=== PATIENT | male | born 1975 | race Caucasian/White ===

== ENCOUNTER → 2018-05-19 | Day surgery (SDC) | payer BC ==
[~2018-05-19] MED LIST: FENTANYL CITRATE/PF 100MCG/2 ML INJ ONE; MIDAZOLAM HCL 2 MG/2 ML VIAL ONE; PANTOPRAZOLE 40 MG 10ML VIAL ONE; PANTOPRAZOLE SO40 MG PO; PROPOFOL IV EMULSION 10 MG/ML 50 ML VIAL ONE
[2018-05-19 16:00] VITALS: BP 128/76
--- NOTE | 2018-05-19 16:21 | Operative Report ---
DATE OF PROCEDURE: May 19, 2018 REFERRING PHYSICIAN: Dr. Duc Veronica PROCEDURE PERFORMED: Esophagogastroduodenoscopy with esophageal dilatation, brushings and biopsies. INDICATIONS FOR PROCEDURE: Dysphagia, odynophagia. MEDICATION: Patient was done under MAC. Please see anesthesiologist's note. PROCEDURE: With the patient in the left lateral decubitus position, the flexible fiberoptic Olympus gastroscope was introduced into the esophagus under direct visualization without any difficulty. There were some scattered whitish plaques, and those were brushed to rule out corrie. There was a mild stricture noted at the GE junction, and that was dilated to a size 52-Sloven[place] Curtis. Biopsies also were obtained from the esophagus to rule out eosinophilic esophagitis. The scope was then advanced with ease into the stomach, traversing a small sliding hiatal hernia. Mucosa overlying the antrum and the body revealed some diffuse intense erythema and moderate edema, and biopsies were obtained and sent to stain for H. pylori. Pylorus was slightly stenotic, but it opened up nicely with repetitive intubations with the scope, which was advanced to the 2nd portion of the duodenum. Biopsies were obtained from the proximal 2nd portion to rule out sprue. Mucosa overlying the duodenal bulb appeared to be within normal limits. The scope was then withdrawn back into the stomach and retroflexed. The mucosa overlying the fundus and the cardia appeared to be within normal limits. The scope was then straightened out. The stomach was decompressed. The scope was subsequently withdrawn. Patient tolerated the procedure well. IMPRESSION 1. Rule out corrie esophagitis. 2. Rule out eosinophilic esophagitis. 3. Mild stricture at gastroesophageal junction dilated to a size 52-Sloven[place] Curtis. 4. Small sliding hiatal hernia. 5. Gastritis, biopsied. Biopsies sent to stain for H. pylori. 6. Rule out sprue. PLAN: Follow up histology. Increase Protonix to 40 mg 1 p.o. a.c. b.i.d. Job#: [id number] cc:DUC VERONICA MD
--- OUTSIDE RECORDS SUMMARY | 2018-05-30 11:09 | XMS REPORT ---
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 Allergies, Adverse Reactions, Alerts This patient has no known allergies or adverse reactions. Medications This patient has no known medications. Results Test Description Test Time Test Comments Text Results Atomic Results Result Comments CHEST SINGLE (PORTABLE) [place] [address] Patient Name: TRAVIS AKBAR MR #: [id number] : 1975 Age/Sex: 41/M Req #: [id number] Adm Physician: Ordered by: JULIAN VERONICA MD Report #: [id number] Location: OR Room/Bed: Procedure: [id number] DX/CHEST SINGLE (PORTABLE) Exam Date: 05/09/17 Exam Time: 1846 REPORT STATUS: Signed PROCEDURE: A single AP view of the chest. COMPARISON: None. INDICATIONS: FOREIGN BODY FINDINGS: Lines/tubes: None. Lungs: The lungs are well inflated and clear. There is no evidence of pneumonia or pulmonary edema. 1.0 cm round opacity over the right lower lung is probably nipple shadow. Pleura: There is no pleural effusion or pneumothorax. Right apical opacity. Heart and mediastinum: Normal heart size. Known esophageal foreign body is not radiopaque. There is mild dilatation of the proximal esophagus. No pneumomediastinum. Bones: No acute bony abnormality. IMPRESSION: 1. The known esophageal foreign body is not radiopaque. There is mild dilatation of the proximal esophagus. No pneumomediastinum or pleural effusions. 2. Right apical opacity may represent scarring related to reported history of spontaneous pneumothorax. Recommend comparison with prior radiographs. If no prior radiographs are available, recommend further evaluation with CT of the chest. Dictated by: Jeffery Peck M.D. on 05/09/2017 at 19:07 Electronically approved by: Jeffery Peck M.D. on 05/09/2017 at 19:07 Dictated By: JEFFERY PECK MD 06 Transcribed By: CECIL on 05/09/171906 COPY TO: JULIAN VERONICA MD
--- OUTSIDE RECORDS SUMMARY | 2018-05-30 11:09 | XMS REPORT | Clinical Summary ---
Author Author [facility] Address Unknown Phone Unavailable Care Team Providers Care Stenographer Secretary Name Role Phone Mia Arango MD PCP Allergies Active Allergy Reactions Severity Noted Date Comments Ampicillin 06/23/2016 Penicillins 07/11/2017 As a child. Current Medications Prescription Sig. Disp. Refills Start End Date Status Date pantoprazole (PROTONIX) Take 1 tablet (40 mg 60 tablet 5 09/10/19 Active 40 MG EC total) by mouth 2 (two) 17 tabletIndications: times a day. Dysphagia, unspecified type hydrOXYzine (ATARAX) 50 TK 1 T PO BID PRN 0 04/19/20 Active MG tablet 17 loratadine (CLARITIN) 10 Take 10 mg by mouth Active mg tablet daily. cyclobenzaprine Take 10 mg by mouth 2 0 07/11/20 Active (FLEXERIL) 10 mg tablet (two) times a day. 17 acetaminophen-codeine TK 1 TO 2 TS PO Q 4 H PRN 1 04/25/20 07/12/20 Discontin (TYLENOL WITH CODEINE #3) P 17 17 ued 300-30 mg per tablet escitalopram (LEXAPRO) 20 TK 1 T PO QD 0 02/09/20 07/04/20 Discontin MG tablet 17 17 ued FLUoxetine (PROzac) 20 MG TK 1 C PO QD IN THE 0 03/04/20 07/04/20 Discontin capsule MORNING 17 17 ued carisoprodol (SOMA) 350 TK 1 T PO BID 0 05/03/20 07/12/20 Discontin MG tablet 17 17 ued dexamethasone (DECADRON) TK 1 T PO BID 0 05/03/20 07/12/20 Discontin 4 MG tablet 17 17 ued fluconazole (DIFLUCAN) TAKE 1 TABLET BY MOUTH 0 05/13/20 07/04/20 Discontin 200 MG tablet TWICE DAILY FOR 5 DAYS 17 17 ued THEN ONCE DAILY FOR 20 DAYS HYDROcodone-acetaminophen TK 1 T PO Q 4 TO 6 H PRN 0 05/03/20 07/12/20 Discontin (NORCO) 5-325 mg per P 17 17 ued tablet HYDROcodone-acetaminophen 1-2 tabs as needed for 0 07/12/20 08/11/20 (NORCO) 5-325 mg per pain every 4-6 hrs 17 17 tablet methocarbamol (ROBAXIN) Take 1 tablet (500 mg 07/12/20 08/11/20 500 MG tablet total) by mouth every 8 17 17 (eight) hours as needed for muscle spasms for up to 30 days. dexamethasone (DECADRON) Take 1 tablet (0.75 mg 7 tablet 0 07/12/20 07/19/20 0.75 MG tablet total) by mouth daily 17 17 with breakfast for 7 days. Active Problems Problem Noted Date Cervical radiculopathy 07/11/2017 Dysphagia 06/23/2016 Encounters Date Type Specialty Care Team Description 07/21/2017 Office Visit Neurosurgery Praneeth Cooper MD Cervical radiculopathy at C7 (Primary Dx) 07/11/2017 [facility] Neurosurgery Praneeth Cooper MD - Encounter 07/12/2017 07/11/2017 Procedure Pass Neurosurgery 07/11/2017 Procedure Pass General Surgery 07/11/2017 Surgery General Surgery Praneeth Cooper MD LEFT C6-7 LAMINECTOMY AND FORAMINOTOMY 07/05/2017 Anesthesia General Surgery Virgilio Singer, DIRECTOR OF MARKETING ANALYTICS Event 07/04/2017 Pre-Admit Pre-Admission Testing Praneeth Cooper MD Preop testing (Primary Testing Dx) Appointment 06/21/2017 Office Visit Neurosurgery Praneeth Cooper MD Cervical radiculopathy at C7 (Primary Dx) 06/03/2017 Hospital Radiology Praneeth Cooper MD Cervical spinal stenosis Encounter after 05/18/2017 Family History Medical History Relation Name Comments No Known Problems Father No Known Problems Mother Relation Name Status Comments Father Alive Mother Alive Social History Tobacco Use Types Packs/Day Years Used Date Never Smoker Smokeless Tobacco: Snuff Current User Alcohol Use Drinks/Week oz/Week Comments Yes occ Sex Assigned at Date Recorded Not on file Last Filed Vital Signs Vital Sign Reading Time Taken Blood Pressure 136/75 07/12/2017 8:32 AM [facility] Pulse 82 07/12/2017 8:32 AM [facility] Temperature 36.7 C (98 F) 07/12/2017 8:32 AM [facility] Respiratory Rate 16 07/12/2017 8:32 AM [facility] Oxygen Saturation 98% 07/12/2017 8:32 AM [facility] Inhaled Oxygen - - Concentration Weight - - Height 185.4 cm (6' 1") 07/11/2017 7:21 AM [facility] Body Mass Index - - Plan of Treatment Health Maintenance Due Date Last Done Comments INFLUENZA VACCINE 03/15/2018 Implants Implanted Type Area Heel Lining Paster Device Expiration Model / Identifier Date Serial / Lot Kit Hemostatic Matrix W/Thrombin Surgical N/A: N/A ETHICON US-EH 10/12/2018 2994 / 8ml Surgif[employer] - [id number] Implants; / Implanted: 07/11/2017 (Quantity not Expanders; [id number] on file) Extenders; Surgical Wires Procedures Procedure Name Priority Date/Time Associated Diagnosis Comments PARTIAL THROMBOPLASTIN Routine 07/12/2017 Results for this TIME (PTT) 4:10 AM [facility] procedure are in the results section. MRI LUMBAR SPINE WO Routine 07/11/2017 Results for this CONTRAST 9:37 PM [facility] procedure are in the results section. SURGICAL PATHOLOGY Routine 07/11/2017 Results for this REQUEST 11:27 AM [facility] procedure are in the results section. XR CERVICAL SPINE 1 VW Routine 07/11/2017 Results for this 9:58 AM [facility] procedure are in the results section. XR CERVICAL SPINE 1 VW Routine 07/11/2017 Results for this 9:25 AM [facility] procedure are in the results section. AL AN ELECTIVE Routine 07/11/2017 ENDOTRACHEAL AIRWAY 9:09 AM [facility] Procedure Note - Mia Griffin Jr., MD - 07/11/2017 8:56 AM [facility] Airway Date/Time: 07/11/2017 8:45 AM Performed by: MIA GRIFFIN JR Authorized by: MIA GRIFFIN JR Location: OR Urgency: Elective Anesthesio logist: MIA GRIFFIN JR Performed by: anesthesio logist Preoxygena bessy with 100% O2: Yes C-spine Precaution s Maintained Throughout : Yes Mask Ventilatio n: Easy mask Final Airway Type: Endotrache al airway (head prepositio elissa cinfortabl y before intubation ) Final Endotrache al Airway: ETT Cuffed: Yes Technique Used: Direct laryngosco py Devices/Me thods Used in Placement: Intubatin g stylet Insertion Site: Oral Blade Type: Calvert Laryngosco pe Blade/Vide olaryngosc ope Blade Size: 2 ETT Size (mm): 8.0 Cuff at minimum occlusion pressure: Yes Measured from: Teeth Placement Verified by: direct visualizat ion Laryngosco pic view: Grade IIb - view of arytenoids or posterior of glottis only Rapid Sequence Induction (RSI): No Modified RSI: No Number of Attempts at Approach: 1 TYPE AND SCREEN Routine 07/11/2017 Results for this 7:33 AM [facility] procedure are in the results section. LAMINECTOMY, CERVICAL, 07/11/2017 CERVICAL RADICULOPATHY POSTERIOR APPROACH 7:30 AM [facility] M54.12 Case Notes EST 2.5HRS, PRONE POSITION, COOL HEADREST Special Needs EST 2.5HRS, PRONE POSITION, MCINTOSH HEADREST ZZESTIMATED GFR Routine 07/04/2017 Results for this 2:22 PM [facility] procedure are in the results section. PARTIAL THROMBOPLASTIN Routine 07/04/2017 Preop testing Results for this TIME (PTT) 2:22 PM [facility] procedure are in the results section. PROTHROMBIN TIME WITH INR Routine 07/04/2017 Preop testing Results for this 2:22 PM [facility] procedure are in the results section. HC COMPLETE BLD COUNT Routine 07/04/2017 Preop testing Results for this W/AUTO DIFF 2:22 PM [facility] procedure are in the results section. HIV 1, 2 ANTIBODY Routine 07/04/2017 Preop testing Results for this 2:22 PM [facility] procedure are in the results section. HEPATITIS C ANTIBODY Routine 07/04/2017 Preop testing Results for this 2:22 PM [facility] procedure are in the results section. HEPATITIS B SURFACE Routine 07/04/2017 Preop testing Results for this ANTIGEN 2:22 PM [facility] procedure are in the results section. HEPATITIS A ANTIBODY IGM Routine 07/04/2017 Preop testing Results for this 2:22 PM [facility] procedure are in the results section. BASIC METABOLIC PANEL Routine 07/04/2017 Preop testing Results for this 2:22 PM [facility] procedure are in the results section. CT CERVICAL SPINE WO Routine 06/03/2017 Cervical spinal stenosis Results for this CONTRAST 11:58 AM CDT procedure are in the results section. after 05/18/2017 Results * Partial thromboplastin time, activated (07/12/2017 4:10 AM) Only the most recent of 2 results within the time period is included. PTT 27.1 23.0 - 36.0 sec [facility] DEPARTMENT OF Comment: PATHOLOGY AND PTT therapeutic range for GENOMIC MEDICINE unfractionated heparin is 61.0-112.0 seconds which corresponds to Anti-Xa 0.3-0.7 U/ml. Specimen Blood Performing Organization Address City/State/Zipcode Phone Number [facility] DEPARTMENT OF [address] [place] [address] PATHOLOGY AND GENOMIC MEDICINE * MRI Lumbar Spine Wo Contrast (07/11/2017 9:37 PM) Narrative Performed At [facility] EXAMINATION: MRI LUMBAR SPINE WO CONTRAST CLINICAL HISTORY: weakness COMPARISON:None TECHNIQUE: Multiplanar multisequence nonenhanced MRI examination was performed of the Lumbar spine. FINDINGS: For the purposes of this report, 5 lumbar type vertebral bodies are assumed and numbered according to the lumbosacral and vertebral morphology. Vertebral body heights are maintained without acute fracture.Lumbar spine alignment is grossly preserved with normal lordosis without significant subluxation. No suspicious osseous lesions. No degenerative marrow signal abnormality is present. Conus medullaris terminates at the inferior aspect of L1. Axial images through the disc spaces demonstrate the following: L1-L2: No significant posterior disc disease, spinal canal or neural foraminal stenosis. L2-L3: No significant posterior disc disease, spinal canal or neural foraminal stenosis. L3-L4: No significant posterior disc disease, spinal canal or neural foraminal stenosis. L4-L5: Diffuse disc bulge with superimposed small right foraminal disc protrusion tiny annular fissure contributing to mild right neural foraminal narrowing. Patent spinal canal. Mild bilateral facet hypertrophy. L5-S1: No significant posterior disc disease, spinal canal or neural foraminal stenosis. Mild bilateral facet hypertrophy. No significant posterior disc disease, spinal canal or neural foraminal stenosis at other visualized levels. IMPRESSION: Minimal degenerative changes of the lumbar spine without significant spinal canal or neural foraminal narrowing. Small right foraminal disc protrusion at L4-L5 results in mild right neural foraminal narrowing. [id number] Procedure Note Interface, Radiology Results Incoming - 07/12/2017 12:54 AM [facility] EXAMINATION: MRI LUMBAR SPINE WO CONTRAST CLINICAL HISTORY: weakness COMPARISON: None TECHNIQUE: Multiplanar multisequence nonenhanced MRI examination was performed of the Lumbar spine. FINDINGS: For the purposes of this report, 5 lumbar type vertebral bodies are assumed and numbered according to the lumbosacral and vertebral morphology. Vertebral body heights are maintained without acute fracture. Lumbar spine alignment is grossly preserved with normal lordosis without significant subluxation. No suspicious osseous lesions. No degenerative marrow signal abnormality is present. Conus medullaris terminates at the inferior aspect of L1. Axial images through the disc spaces demonstrate the following: L1-L2: No significant posterior disc disease, spinal canal or neural foraminal stenosis. L2-L3: No significant posterior disc disease, spinal canal or neural foraminal stenosis. L3-L4: No significant posterior disc disease, spinal canal or neural foraminal stenosis. L4-L5: Diffuse disc bulge with superimposed small right foraminal disc protrusion tiny annular fissure contributing to mild right neural foraminal narrowing. Patent spinal canal. Mild bilateral facet hypertrophy. L5-S1: No significant posterior disc disease, spinal canal or neural foraminal stenosis. Mild bilateral facet hypertrophy. No significant posterior disc disease, spinal canal or neural foraminal stenosis at other visualized levels. IMPRESSION: Minimal degenerative changes of the lumbar spine without significant spinal canal or neural foraminal narrowing. Small right foraminal disc protrusion at L4-L5 results in mild right neural foraminal narrowing. [id number] Performing Organization Address City/[facility]/Zipcode Phone Number [facility] [address] [place] [address] * Surgical pathology request (07/11/2017 11:27 AM) [facility] DEPARTMENT OF PATHOLOGY AND GENOMIC MEDICINE Surgical pathology report See link below for PDF Lab [facility] DEPARTMENT OF Report PATHOLOGY AND GENOMIC MEDICINE Result status This is Final Report to [facility] DEPARTMENT OF [id number] PATHOLOGY AND GENOMIC MEDICINE Performing Organization Address City/[facility]/Zipcode Phone Number [facility] DEPARTMENT OF [address] [place] [id number] PATHOLOGY AND GENOMIC MEDICINE * XR Cervical Spine 1 Vw (07/11/2017 9:58 AM) Only the most recent of 2 results within the time period is included. Narrative Performed At EXAMINATION: XR CERVICAL SPINE 1 VW [facility] CLINICAL HISTORY: Cervical region neck pain and radiculopathy COMPARISON:Intraoperative exam from earlier today. FINDINGS: There are radiopaque instruments in the posterior paraspinal soft tissues and posterior element region at the C7 and T1 levels. One tip overlaps the canal at the upper C7 level. There are degenerative changes in the cervical spine. There are tubes within the oropharynx extending downwards. IMPRESSION: Lateral intraoperative radiograph of the cervical spine for localization during cervical spine surgery [id number] Procedure Note Hm Interface, Radiology Results Incoming - 07/11/2017 10:44 AM [facility] EXAMINATION: XR CERVICAL SPINE 1 VW CLINICAL HISTORY: Cervical region neck pain and radiculopathy COMPARISON: Intraoperative exam from earlier today. FINDINGS: There are radiopaque instruments in the posterior paraspinal soft tissues and posterior element region at the C7 and T1 levels. One tip overlaps the canal at the upper C7 level. There are degenerative changes in the cervical spine. There are tubes within the oropharynx extending downwards. IMPRESSION: Lateral intraoperative radiograph of the cervical spine for localization during cervical spine surgery [facility]-[id number] Performing Organization Address City/[facility]/Zipcode Phone Number [facility] [address] [place] [address] * Type and screen (07/11/2017 7:33 AM) ABO grouping O [facility] DEPARTMENT OF PATHOLOGY AND GENOMIC MEDICINE Rh type NEG [facility] DEPARTMENT OF PATHOLOGY AND GENOMIC MEDICINE Antibody screen (gel) NEG [facility] DEPARTMENT OF PATHOLOGY AND GENOMIC MEDICINE Specimen Blood Performing Organization Address [facility] [place] [address] PATHOLOGY AND GENOMIC MEDICINE * Estimated GFR (07/04/2017 2:22 PM) GFR Non Af Amer 74 mL/min/1.73 m2 [facility] DEPARTMENT OF PATHOLOGY AND GENOMIC MEDICINE GFR Af Amer 89 mL/min/1.73 m2 [facility] DEPARTMENT OF Comment: PATHOLOGY AND Chronic kidney disease: <60 GENOMIC MEDICINE mL/min/1.73m2 Kidney failure: <15 mL/min/1.73m2 The estimated GFR is calculated from the IDMS-traceable Modification of Diet in Renal Disease Equation. The accuracy of the calculation is poor when the creatinine is normal. Calculated values >90 mL/min/1.73m2 are not reported. This equation has not been validated in children (<18 years), women, the elderly (>70 years), or ethnic groups other than Caucasians and Americans. Specimen Plasma specimen Performing Organization Address City/State/[place] [address] PATHOLOGY AND [facility] MEDICINE * Hepatitis C antibody (07/04/2017 2:22 PM) Hepatitis C Ab Non-reactive Non-reactive [facility] DEPARTMENT OF PATHOLOGY AND GENOMIC MEDICINE Specimen Serum Performing Organization Address City/[facility]/[place] [address] PATHOLOGY AND [facility] * Hepatitis A antibody IgM (07/04/2017 2:22 PM) Hepatitis A IgM Non-reactive Non-reactive [facility] DEPARTMENT OF PATHOLOGY AND [facility] Specimen Serum Performing Organization Address [facility] [place] [address] PATHOLOGY AND [facility] * HIV 1, 2 antibody (07/04/2017 2:22 PM) HIV 1, 2 antibody Non-reactive Non-reactive [facility] DEPARTMENT OF Comment: PATHOLOGY AND Starting from November 11 2015, GENOMIC MEDICINE 4th generation HIV screening and confirmation assays are in use at [facility], consistent with the CDC-recommended algorithm. The screening test detects antibodies to HIV-1, HIV-2 and the p24 antigen. Positive screening results will be automatically reflexed to a HIV-1/HIV-2 differentiation assay. Indeterminant HIV-1 results will be further automatically reflexed to a nucleic acid test for detection of acute infection. Western blot will no longer be performed as a confirmation test. For a quick reference guide on the testing algorithm, please refer to: http://stacks.cdc.gov/view/cdc /88615. Specimen Serum Performing Organization Address City/[facility]/Zipcode Phone Number [facility] [place] [address] PATHOLOGY AND [facility] MEDICINE * Hepatitis B surface antigen (07/04/2017 2:22 PM) Hepatitis B surface Ag Non-reactive Non-reactive [facility] DEPARTMENT OF PATHOLOGY AND GENOMIC MEDICINE Specimen Serum Performing Organization Address City/[facility]/[place] [address] PATHOLOGY AND [facility] MEDICINE * Prothrombin time with INR (07/04/2017 2:22 PM) Prothrombin time 12.5 12.0 - 15.0 sec [facility] DEPARTMENT OF PATHOLOGY AND GENOMIC MEDICINE INR 0.9 [facility] DEPARTMENT OF Comment: PATHOLOGY AND The International Normalized GENOMIC MEDICINE Ratio (INR) is a therapeutic monitoring tool for patients who are stable on oral anticoagulant therapy. An INR of 2.0-3.0 is suggested for deep vein thrombosis/pulmonary embolism. Specimen Blood Performing Organization Address City/State/Zipcode Phone Number [facility] DEPARTMENT OF [address] [place] [address] PATHOLOGY AND GENOMIC MEDICINE * CBC with platelet and differential (07/04/2017 2:22 PM) WBC 6.41 4.50 - 11.00 k/uL [facility] DEPARTMENT OF PATHOLOGY AND GENOMIC MEDICINE RBC 5.11 4.40 - 6.00 m/uL [facility] DEPARTMENT OF PATHOLOGY AND GENOMIC MEDICINE HGB 16.3 14.0 - 18.0 g/dL [facility] DEPARTMENT OF PATHOLOGY AND GENOMIC MEDICINE HCT 48.8 41.0 - 51.0 % [facility] DEPARTMENT OF PATHOLOGY AND GENOMIC MEDICINE MCV 95.5 82.0 - 100.0 fL [facility] DEPARTMENT OF PATHOLOGY AND GENOMIC MEDICINE MCH 31.9 27.0 - 34.0 pg [facility] DEPARTMENT OF PATHOLOGY AND GENOMIC MEDICINE MCHC 33.4 31.0 - 37.0 g/dL [facility] DEPARTMENT OF PATHOLOGY AND GENOMIC MEDICINE RDW - SD 45.7 37.0 - 55.0 fL [facility] DEPARTMENT OF PATHOLOGY AND GENOMIC MEDICINE MPV 9.7 8.8 - 13.2 fL [facility] DEPARTMENT OF PATHOLOGY AND GENOMIC MEDICINE Platelet count 219 150 - 400 k/uL [facility] DEPARTMENT OF PATHOLOGY AND GENOMIC MEDICINE Nucleated RBC 0.00 /100 WBC [facility] DEPARTMENT OF PATHOLOGY AND GENOMIC MEDICINE Neutrophils 61.5 39.0 - 69.0 % [facility] DEPARTMENT OF PATHOLOGY AND GENOMIC MEDICINE Lymphocytes 26.5 25.0 - 45.0 % [facility] DEPARTMENT OF PATHOLOGY AND GENOMIC MEDICINE Monocytes 10.5 (H) 0.0 - 10.0 % [facility] DEPARTMENT OF PATHOLOGY AND GENOMIC MEDICINE Eosinophils 0.8 0.0 - 5.0 % [facility] DEPARTMENT OF PATHOLOGY AND GENOMIC MEDICINE Basophils 0.5 0.0 - 1.0 % [facility] DEPARTMENT OF PATHOLOGY AND GENOMIC MEDICINE Immature granulocytes 0.2Comment: "Immature 0.0 - 1.0 % [facility] DEPARTMENT OF granulocytes" (promyelocytes, PATHOLOGY AND myelocytes, metamyelocytes) GENOMIC MEDICINE Specimen Blood Performing Organization Address City/[facility]/Zipcode Phone Number [facility] DEPARTMENT OF [address] [place] [address] PATHOLOGY AND GENOMIC MEDICINE * Basic metabolic panel (07/04/2017 2:22 PM) Sodium 145 135 - 148 mEq/L [facility] DEPARTMENT OF PATHOLOGY AND GENOMIC MEDICINE Potassium 3.6 3.5 - 5.0 mEq/L [facility] DEPARTMENT OF PATHOLOGY AND GENOMIC MEDICINE Chloride 103 98 - 112 mEq/L [facility] DEPARTMENT OF PATHOLOGY AND GENOMIC MEDICINE CO2 28 24 - 31 mEq/L [facility] DEPARTMENT OF PATHOLOGY AND GENOMIC MEDICINE Anion gap 14 7 - 15 mEq/L [facility] DEPARTMENT OF Comment: PATHOLOGY AND Starting from November GENOMIC MEDICINE , anion gap calculation no longer incorporates potassium. Please note the change. BUN 18 6 - 20 mg/dL [facility] DEPARTMENT OF PATHOLOGY AND GENOMIC MEDICINE Creatinine 1.1 0.7 - 1.2 mg/dL [facility] DEPARTMENT OF PATHOLOGY AND GENOMIC MEDICINE Glucose 121 (H) 65 - 99 mg/dL [facility] DEPARTMENT OF PATHOLOGY AND GENOMIC MEDICINE Calcium 9.1 8.3 - 10.2 mg/dL [facility] DEPARTMENT OF PATHOLOGY AND GENOMIC MEDICINE Specimen Plasma specimen Performing Organization Address City/[facility]/Zipcode Phone Number [facility] DEPARTMENT OF [address] [place] [address] PATHOLOGY AND [employer] MEDICINE * CT Cervical Spine Wo Contrast (06/03/2017 11:58 AM) Narrative Performed At EXAMINATION:CT CERVICAL SPINE WO CONTRAST [facility] CLINICAL HISTORY:M48.02 Spinal stenosiscervical region, cervical stenosis COMPARISON:Cervical spinal CT on 04/16/2015 and intraoperative cervical spinal radiographs on 04/17/2015. TECHNIQUE: Noncontrast cervical spinal CT with multiplanar reconstruction performed using radiation dose reduction techniques.Technical factors are evaluated and adjusted to ensure appropriate moderation of exposure.Automated dose management technology is applied to adjust radiation exposure while achieving a diagnostic quality image. FINDINGS: There are postoperative changes from right C5-6, right C6-7, and right C7-T1 hemilaminotomies. There is 1-2 mm anterior subluxation of C2 on C3 and straightening of normal cervical lordosis between C3 and C6. Vertebral body heights are preserved. There is no evidence of acute fracture, suspicious osteolytic or osteoblastic lesion. The C2-3 and C3-4 discs are moderately narrowed. Remaining cervical discs are mildly narrowed. C2-3: There is no significant neural foraminal stenosis. No significant spinal canal stenosis is suspected. C3-4: There is mild right neural foraminal stenosis from adjacent uncovertebral arthropathy. No significant spinal canal stenosis is suspected. C4-5: There is no significant neural foraminal stenosis. No significant spinal canal stenosis is suspected. C5-6: There are postoperative changes from right hemilaminotomy. There is residual mild right neural foraminal stenosis from adjacent uncovertebral and facet arthropathy. No significant spinal canal stenosis is suspected. C6-7: There are postoperative changes from right hemilaminotomy. There are residual mild bilateral neural foraminal stenoses from adjacent uncovertebral and facet arthropathy. No significant spinal canal stenosis is suspected. C7-T1: There are postoperative changes from right hemilaminotomy. There is no significant residual neural foraminal stenosis. No significant spinal canal stenosis is suspected. Visualized neck soft tissues including thyroid gland are unremarkable. There is scarring in the right lung apex. IMPRESSION: Postoperative changes from right C5-6, right C6-7, and right C7-T1 hemilaminotomies. At most mild right C3-4, right C5-6, and bilateral C6-7 neural foraminal stenoses. No significant spinal canal stenosis suspected. [facility]-[id number] Procedure Note Interface, Radiology Results Incoming - 06/03/2017 12:17 PM CDT EXAMINATION: CT CERVICAL SPINE WO CONTRAST CLINICAL HISTORY: M48.02 Spinal stenosis cervical region, cervical stenosis COMPARISON: Cervical spinal CT on 04/16/2015 and intraoperative cervical spinal radiographs on 04/17/2015. TECHNIQUE: Noncontrast cervical spinal CT with multiplanar reconstruction performed using radiation dose reduction techniques. Technical factors are evaluated and adjusted to ensure appropriate moderation of exposure. Automated dose management technology is applied to adjust radiation exposure while achieving a diagnostic quality image. FINDINGS: There are postoperative changes from right C5-6, right C6-7, and right C7-T1 hemilaminotomies. There is 1-2 mm anterior subluxation of C2 on C3 and straightening of normal cervical lordosis between C3 and C6. Vertebral body heights are preserved. There is no evidence of acute fracture, suspicious osteolytic or osteoblastic lesion. The C2-3 and C3-4 discs are moderately narrowed. Remaining cervical discs are mildly narrowed. C2-3: There is no significant neural foraminal stenosis. No significant spinal canal stenosis is suspected. C3-4: There is mild right neural foraminal stenosis from adjacent uncovertebral arthropathy. No significant spinal canal stenosis is suspected. C4-5: There is no significant neural foraminal stenosis. No significant spinal canal stenosis is suspected. C5-6: There are postoperative changes from right hemilaminotomy. There is residual mild right neural foraminal stenosis from adjacent uncovertebral and facet arthropathy. No significant spinal canal stenosis is suspected. C6-7: There are postoperative changes from right hemilaminotomy. There are residual mild bilateral neural foraminal stenoses from adjacent uncovertebral and facet arthropathy. No significant spinal canal stenosis is suspected. C7-T1: There are postoperative changes from right hemilaminotomy. There is no significant residual neural foraminal stenosis. No significant spinal canal stenosis is suspected. Visualized neck soft tissues including thyroid gland are unremarkable. There is scarring in the right lung apex. IMPRESSION: Postoperative changes from right C5-6, right C6-7, and right C7-T1 hemilaminotomies. At most mild right C3-4, right C5-6, and bilateral C6-7 neural foraminal stenoses. No significant spinal canal stenosis suspected. [facility]-[id number] Performing Organization Address City/State/Zipcode Phone Number [employer] [id number] [place] [address] after 05/18/2017 Insurance Payer Benefit Subscriber ID Type Phone Address Plan / Group BCBS BCBS OUT xxxxxxxxxxxx [place] STATE
== END | disposition home or self-care (01) ==
LOC: OR 11:27
PROVIDERS: ATTEND Internal Medicine Gastroenterology
DX: K22.2 Esophageal obstruction (principal); K29.70 Gastritis, unspecified, without bleeding; K21.0 Gastro-esophageal reflux disease with esophagitis; K44.9 Diaphragmatic hernia without obstruction or gangrene; K22.8 Other specified diseases of esophagus; R03.0 Elevated blood-pressure reading, without diagnosis of hypertension; Z88.0 Allergy status to penicillin; Z01.810 Encounter for preprocedural cardiovascular examination; Z68.27 Body mass index [BMI] 27.0-27.9, adult; Z87.09 Personal history of other diseases of the respiratory system
CPT/HCPCS: 43239; 43450; 93005; J2250